=== PATIENT | female | born 1960 | race Caucasian/White ===

== ENCOUNTER 2017-05-18 08:35 | Inpatient (IN) | payer MEDICAID ==
[2017-05-18] VITALS (13 sets, daily range): BP systolic 116–171; BP diastolic 72–95
[~2017-05-18] VITALS: Ht 162.6 cm; Wt 54.0 kg
[~2017-05-18 08:35] MED LIST: HYDR-565 PO; MEDR2.5T PO
[2017-05-18] MEDS ORDERED: aspirin 81mg tab.chew PO ONE (08:50)
[2017-05-18] MEDS ORDERED: nitroGLYCERIN 0.2mg/hour patch TD ONE ×2 (08:50→10:10)
[2017-05-18 09:21] LABS: BASOPHILS # (AUTO) 0.1 X10'3 (0-0.2); BASOPHILS % (AUTO) 0.8 % (0-1); EOSINOPHILS # (AUTO) 0.2 X10'3 (0-0.9); EOSINOPHILS % (AUTO) 1.9 % (0-6); HEMATOCRIT 45.7 % (35.0-45.0); HEMOGLOBIN 15.7 g/dl (12.0-16.0); LYMPHOCYTES % (AUTO) 25.1 % (21-51); MEAN CORPUSCULAR HEMOGLOBIN 30.8 PG (27.0-31.0); MEAN CORPUSCULAR HGB CONC 34.3 % (33.0-36.5); MEAN CORPUSCULAR VOLUME 89.8 FL (78-98); MEAN PLATELET VOLUME 7.5 FL (7.4-10.4); MONOCYTES # (AUTO) 0.8 X10'3 (0-0.9); NEUTROPHILS % (AUTO) 62.2 % (42-75); PLATELET COUNT 208 X10'3 (140-440); RED BLOOD COUNT 5.09 X10'6 (4.20-5.60); RED CELL DISTRIBUTION WIDTH 12.2 % (11.5-14.5); WHITE BLOOD COUNT 8.1 X10'3 (4.5-11.0)
[2017-05-18 09:27] LABS: ALANINE AMINOTRANSFERASE 22 U/L (12-78); ALBUMIN 3.7 G/DL (3.4-5.0); ALBUMIN/GLOBULIN RATIO 1.1 (1.1-1.5); ALKALINE PHOSPHATASE 69 IU/L (46-116); ANION GAP 3 (8-16); ASPARTATE AMINO TRANSFERASE 36 U/L (10-37); BILIRUBIN,TOTAL 0.4 MG/DL (0.1-1.0); BLOOD UREA NITROGEN 23 MG/DL (7-18); BUN/CREATININE RATIO 21.3 (6.6-38.0); CHLORIDE 103 MMOL/L (99-107); CREATININE 1.08 MG/DL (0.40-0.90); ETHANOL < 0.010 GM/DL (0.0-0.010); GLUCOSE 135 MG/DL (70-104); LIPASE 334 U/L (73-393); MAGNESIUM 1.9 MG/DL (1.5-2.4); POTASSIUM 4.7 MMOL/L (3.5-5.1); SODIUM 139 MMOL/L (135-145); TOTAL CARBON DIOXIDE 32.7 MMOL/L (24-32); TOTAL PROTEIN 7.1 G/DL (6.4-8.2); eGFR 53 ML/MIN
[2017-05-18 09:46] LABS: PROTHROMBIN TIME 10.1 SECONDS (9.0-12.0)
[2017-05-18 10:01] LABS: CLARITY,URINE SLIGHTLY CLOUDY (Clear); COLOR,URINE YELLOW (Yellow); GLUCOSE, URINE NEGATIVE (Neg); KETONES,URINE NEGATIVE (Neg); LEUKOCYTE ESTERASE ,URINE NEGATIVE (Neg); NITRITES, URINE NEGATIVE (Neg); OCCULT BLOOD,URINE NEGATIVE (Neg); PROTEIN,URINE NEGATIVE (Neg); UROBILINOGEN,URINE 0.2 E.U/dL (0.2-1.0)
[2017-05-18 10:02] LABS: UA COLLECTION TYPE CLN CATCH MIDSTREAM
[2017-05-18] MEDS ORDERED: LISI-643 PO (10:07)
[2017-05-18 10:10] LABS: PARTIAL THROMBOPLASTIN TIME 27 SECONDS (22-32)
[2017-05-18] MEDS ORDERED: enoxaparin 100mg/ml syringe SUBCUT ONE (10:10)
[2017-05-18] MEDS ORDERED: ATOM40CA PO (10:10)
[2017-05-18] MEDS ORDERED: ALPR-624 PO (10:10)
[2017-05-18] MEDS ORDERED: metoprolol tartrate 25mg tablet PO ONE (10:10)
[2017-05-18 10:18] LABS: MUCUS STRANDS FEW /LPF (Neg); SQUAMOUS EPITHELIAL CELL,UR MODERATE /LPF (FEW)
[2017-05-18 10:19] LABS: BACTERIA,URINE FEW /HPF (Neg); RBC,URINE 0-2 /HPF (0-2); WBC,URINE 0-4 /HPF (0-4)
[2017-05-18] MEDS: metoprolol tartrate 1mg/ml inj IV SCH ×3 (10:22→12:29)
[2017-05-18] MEDS ORDERED: heparin 10,000 units/1 ML INJ IV ONE (10:25)
[2017-05-18 10:27] LABS: CHOL/HDL RATIO 2.1 (0.00-4.99); CHOLESTEROL 236 MG/DL (0-200); HDL CHOLESTEROL 112 MG/DL (35-60); LDL CHOLESTEROL 111 MG/DL (50-100); TRIGLYCERIDES 73 MG/DL (20-135)
[2017-05-18] MEDS ORDERED: mag hydrox/Alum hydrox/simeth 30ml oral suspension PO PRN (10:45)
[2017-05-18] MEDS ORDERED: magnesium hydroxide 30ml (MOM) UD suspension PO PRN (10:45)
[2017-05-18] MEDS ORDERED: HYDROcodone/acetaminophen 10/325mg tab PO PRN ×2 (10:45→19:00)
[2017-05-18] MEDS ORDERED: potassium Cl 20 mEq SR tablet PO PRN ×2 (10:45)
[2017-05-18] MEDS ORDERED: magnesium Cl slow-release 64mg tablet PO PRN (10:45)
[2017-05-18] MEDS ORDERED: bisacodyl 10mg suppository rectal RC PRN (10:45)
[2017-05-18] MEDS ORDERED: potassium Cl 40MEQ/NS 500ml 500 ML IV PRN ×2 (10:45)
[2017-05-18] MEDS ORDERED: magnesium 4gm in 100ml NS 100 ML IV PRN (10:45)
[2017-05-18] MEDS ORDERED: HYDROcodone/acetaminophen 5mg/325mg tablet PO PRN ×2 (10:45→19:00)
[2017-05-18] MEDS ORDERED: acetaminophen 325mg tablet PO PRN (10:45)
[2017-05-18] MEDS ORDERED: morphine 2 MG/ML inj. syringe IV PRN ×2 (10:45)
[2017-05-18] MEDS ORDERED: ondansetron/PF 4mg/2ml inj IV PRN ×2 (10:45→19:00)
[2017-05-18] MEDS ORDERED: magnesium 2GM in 50ml NS 50 ML IV PRN (10:45)
[2017-05-18] MEDS ORDERED: ALPRAZolam 0.25mg tablet PO PRN (10:50)
[2017-05-18] MEDS ORDERED: nitroGLYCERIN 0.2mg/hour patch TD SCH (10:50)
[2017-05-18] MEDS ORDERED: heparin 10,000 units/1 ML INJ IV PRN (10:50)
[2017-05-18] MEDS ORDERED: metoprolol tartrate 1mg/ml inj IV SCH (12:15)
[2017-05-18] MEDS: sodium chloride 0.45% 1,000 ML IV SCH (13:28)
[2017-05-18] MEDS ORDERED: nitroGLYCERIN 0.4mg SUBLingual tab SL ONE (14:13)
[2017-05-18] MEDS ORDERED: nitroGLYCERIN-Tridil 50MG/D5W 250 ML IV SCH (14:34)
[2017-05-18 16:23] LABS: PARTIAL THROMBOPLASTIN TIME 57 SECONDS (22-32)
[2017-05-18] MEDS ORDERED: LIDOcaine 1.5% w/epinephrine 1:200,000 5ml ampul ONE (17:34)
[2017-05-18] MEDS ORDERED: iohexol 350MG/ML 100ml bottle IV ONE (17:34)
[2017-05-18] MEDS ORDERED: midazolam 2 mg/2 ml injection ONE (17:56)
[2017-05-18] MEDS ORDERED: fentaNYL/PF 50MCG/1 ML 2ML syringe ONE (17:56)
[2017-05-18] MEDS ORDERED: proCHLORperazine 10 MG/2 ml inj IV PRN (19:00)
[2017-05-18] MEDS ORDERED: OXAZEpam 15mg capsule PO PRN (19:00)
[2017-05-18] MEDS: docusate sod 100mg capsule PO SCH (20:00)
[2017-05-18] MEDS ORDERED: atorvastatin 20mg tablet PO SCH (20:00)
[2017-05-18] MEDS: metoprolol tartrate 25mg tablet PO SCH (21:45)
[2017-05-18] MEDS ORDERED: lisinopril 10 MG tablet PO ONE (22:35)
[2017-05-19] VITALS: BP 151/98
[2017-05-19] MEDS: sodium chloride 0.45% 1,000 ML IV SCH ×2 (01:03→11:55)
[2017-05-19 03:00] VITALS: BP 143/88
[2017-05-19 06:00] VITALS: BP 154/81
[2017-05-19 06:02] LABS: BASOPHILS % (AUTO) 0.5 % (0-1); EOSINOPHILS # (AUTO) 0.2 X10'3 (0-0.9); EOSINOPHILS % (AUTO) 2.6 % (0-6); HEMATOCRIT 44.4 % (35.0-45.0); HEMOGLOBIN 15.4 g/dl (12.0-16.0); LYMPHOCYTES % (AUTO) 27.9 % (21-51); MEAN CORPUSCULAR HEMOGLOBIN 31.5 PG (27.0-31.0); MEAN CORPUSCULAR HGB CONC 34.8 % (33.0-36.5); MEAN CORPUSCULAR VOLUME 90.5 FL (78-98); MEAN PLATELET VOLUME 7.2 FL (7.4-10.4); MONOCYTES # (AUTO) 0.8 X10'3 (0-0.9); MONOCYTES % (AUTO) 11.5 % (2-12); NEUTROPHILS # (AUTO) 4.2 X10'3 (1.8-7.7); NEUTROPHILS % (AUTO) 57.5 % (42-75); PLATELET COUNT 181 X10'3 (140-440); RED CELL DISTRIBUTION WIDTH 12.9 % (11.5-14.5); WHITE BLOOD COUNT 7.3 X10'3 (4.5-11.0)
[2017-05-19 06:25] LABS: GLUCOSE 98 MG/DL (70-104); POTASSIUM 4.3 MMOL/L (3.5-5.1); SODIUM 140 MMOL/L (135-145)
[2017-05-19 06:26] LABS: ALANINE AMINOTRANSFERASE 34 U/L (12-78); ALBUMIN 3.2 G/DL (3.4-5.0); ALKALINE PHOSPHATASE 67 IU/L (46-116); ANION GAP 6 (8-16); ASPARTATE AMINO TRANSFERASE 87 U/L (10-37); BILIRUBIN,TOTAL 0.2 MG/DL (0.1-1.0); BLOOD UREA NITROGEN 19 MG/DL (7-18); BUN/CREATININE RATIO 22.4 (6.6-38.0); CALCIUM 8.6 MG/DL (8.5-10.1); CHLORIDE 104 MMOL/L (99-107); CHOL/HDL RATIO 2.3 (0.00-4.99); CHOLESTEROL 211 MG/DL (0-200); CREATININE 0.85 MG/DL (0.40-0.90); HDL CHOLESTEROL 93 MG/DL (35-60); LDL CHOLESTEROL 96 MG/DL (50-100); MAGNESIUM 2.1 MG/DL (1.5-2.4); TOTAL CARBON DIOXIDE 29.6 MMOL/L (24-32); TOTAL PROTEIN 6.5 G/DL (6.4-8.2); TRIGLYCERIDES 182 MG/DL (20-135); eGFR 69 ML/MIN
[2017-05-19] MEDS: docusate sod 100mg capsule PO SCH (07:53)
[2017-05-19] MEDS: metoprolol tartrate 25mg tablet PO SCH (07:54)
[2017-05-19] MEDS ORDERED: aspirin 81mg tablet.DR PO SCH (08:00)
[2017-05-19] MEDS ORDERED: lisinopril 10 MG tablet PO SCH (08:00)
[2017-05-19] MEDS ORDERED: K and/or MAG REPLACEMENT MC SCH (08:00)
[2017-05-19] MEDS ORDERED: ATOMOXETINE HCL 40 MG PO SCH (08:00)
[2017-05-19] MEDS ORDERED: diltiazem CD 180mg cap (once-daily) PO SCH (08:50)
[2017-05-19 09:26] LABS: URINE AMPHETAMINE SCREEN POSITIVE (Neg); URINE BARBITUATE SCREEN NEGATIVE (Neg); URINE BENZODIAZEPINES SCREEN POSITIVE (Neg); URINE CANNABINOID SCREEN POSITIVE (Neg); URINE COCAINE SCREEN NEGATIVE (Neg); URINE METHADONE SCREEN NEGATIVE (Neg); URINE OPIATE SCREEN POSITIVE (Neg); URINE PHENCYCLIDINE SCREEN NEGATIVE (Neg)
== END 2017-05-19 12:46 | disposition left against medical advice (07) | DRG 190 ==
LOC: ER 08:36 → ED HOLD 10:19 → PCU 3S 11:20 → CMPBEDREQ 19:30
PROVIDERS: ADMIT Internal Medicine; ATTEND Internal Medicine
PROC: 4A023N7 Measurement of Cardiac Sampling and Pressure, Left Heart, Percutaneous Approach (ICD-10-PCS; principal; 2017-05-18)
PROC: B2111ZZ Fluoroscopy of Multiple Coronary Arteries using Low Osmolar Contrast (ICD-10-PCS; 2017-05-18)
PROC: B2151ZZ Fluoroscopy of Left Heart using Low Osmolar Contrast (ICD-10-PCS; 2017-05-18)
DX: I21.4 Non-ST elevation (NSTEMI) myocardial infarction (principal); I10 Essential (primary) hypertension; E78.5 Hyperlipidemia, unspecified; Z53.21 Procedure and treatment not carried out due to patient leaving prior to being seen by health care provider; F90.9 Attention-deficit hyperactivity disorder, unspecified type; F32.9 Major depressive disorder, single episode, unspecified; F41.9 Anxiety disorder, unspecified; L40.9 Psoriasis, unspecified; G40.909 Epilepsy, unspecified, not intractable, without status epilepticus; G89.4 Chronic pain syndrome; Z79.82 Long term (current) use of aspirin; Z79.899 Other long term (current) drug therapy; Z80.9 Family history of malignant neoplasm, unspecified; Z87.891 Personal history of nicotine dependence; Z88.1 Allergy status to other antibiotic agents
CPT/HCPCS: 36415; 71045; 71046; 80053; 80061; 80305; 80320; 81001; 83690; 83735; 84484; 85025; 85610; 85730; 87070; 93005; 93306; 93458; 99152; 99291; A4620; A6257; C1769; J1644; J1650; J2250; J3010; J3490; Q9967

== ENCOUNTER 2024-02-26 16:44 | Emergency (ER) | payer MEDICAID ==
[~2024-02-26] VITALS: Ht 160 cm; Wt 51.8 kg
[~2024-02-26 16:44] MED LIST changes: +ALPR-624 PO; +ATOM40CA PO; +HYDR-4353 PO; -HYDR-565 PO; +LISI-643 PO
[2024-02-26 16:51] VITALS: BP 162/101; PULSE 86; RESP 16; TEMP 97.9; O2SAT 98
[2024-02-26] MEDS: LIDOcaine 1% 30ml preserv. free vial IJ STA (17:12)
[2024-02-26] MEDS ORDERED: tetanus & diphtheria toxoid (Td) vaccine 0.5ml IMVAC ONE (18:50)
[2024-02-26] MEDS: TETanus/Pertussis (Acell)/Diphther VAC/PF (Tdap-Adult) 0.5ml syringe IMVAC ONE (19:03)
== END 2024-02-26 19:08 | disposition home or self-care (01) ==
LOC: ER 16:45
DX: S60.454A Superficial foreign body of right ring finger, initial encounter (principal); I10 Essential (primary) hypertension; F32.A Depression, unspecified; M79.2 Neuralgia and neuritis, unspecified; Z91.041 Radiographic dye allergy status; X58.XXXA Exposure to other specified factors, initial encounter; Y93.89 Activity, other specified; Y92.89 Other specified places as the place of occurrence of the external cause; Y99.8 Other external cause status
CPT/HCPCS: 64450; 90471; 90715; 99284